=== PATIENT | male | born 1955 | race Hispanic/Latino ===

== ENCOUNTER 2017-06-20 17:42 | Emergency (ER) | payer OTHER ==
[2017-06-20 17:51] VITALS: RESP 16; TEMP 97.4
--- NOTE | 2017-06-20 18:12 | ED PDOC ---
HPI:STROKE - Time Time: 18:08 - Historian Historian: Patient - Chief Complaint Chief Complaint: Numbness - Onset Date: 06/19/17 Time: 18:00 - Timing Timing: Improved - Notes: Notes:: Pt. with numbness to left bicep yesterday that started at 6pm. He went to bed with it and then woke up feeling better but had a pressure on the top of his head. States not a pain. Not the worst in his life. No numbness, tingles, neck pain, weakness, dizziness, chest pain, dyspnea. No fever, cough. No leg pain. Currently no numbness. Went to [facility] who sent pt. to the ER. PCP in [place]. NIHSS Stroke Scale - Date/Time Evaluation Performed Date Performed: 06/20/17 Time Performed: 18:15 When Was NIHSS Performed: Baseline - How Severe is the Stroke Level of Consciousness: 0=Alert LOC to Questions: 0=Both comments correct LOC to commands: 0=Obeys both correctly Best Gaze: 0=Normal Visual: 0=No visual loss Facial: 0=Normal Motor Arm - Left: 0=No drift Motor Arm - Right: 0=No drift Motor Leg - Left: 0=No drift Motor Leg - Right: 0=No drift Limb Ataxia: 0=Absent Sensory: 0=Normal Best Language: 0=No aphasia Dysarthia: 0=Normal articulation Extinction & Inattention (Neglect): 0=Normal, no object Score: 0 rTPA Inclusion/Exclusion - Refusal of Treatment Patient Refused Treatment: No - Inclusion Criteria for Altepase Patient is 18 years or Older: Yes The Clinical Diagnosis of Ischemic Stroke That is Causing a Potentially Disabling Neurological Deficit: No Time of Onset is Well Established to be Less Than 270 Minute Before Treatment Would Begin: No Risk/Benefit Discussed With Patient/Family Member Present: No Past Medical History Reviewed: Nursing Documentation, Vital Signs Vital Signs: Last Vital Signs Temp 97.4 F L 06/20/17 17:47 Pulse 66 06/20/17 17:47 Resp 16 06/20/17 17:47 BP 149/91 H 06/20/17 17:47 Pulse Ox 99 06/20/17 17:47 - Medical History PMH: HTN Other PMH: prostate ca gone now - Family History Family History: States: Unknown Family Hx - Allergies Allergies/Adverse Reactions: Allergies Allergy/AdvReac Type Severity Reaction Status Date / Time No Known Allergies Allergy Verified 06/20/17 17:47 Review of Systems ROS Statement: Except As Marked, All Systems Reviewed And Found Negative Neurological: Positive for: Numbness, Headache Physical Exam - Reviewed Nursing Documentation Reviewed: Yes Vital Signs Reviewed: Yes - Physical Exam Appears: Positive for: Non-toxic, No Acute Distress Head Exam: Positive for: ATRAUMATIC, NORMAL INSPECTION, NORMOCEPHALIC Skin: Positive for: Normal Color, Warm, DRY Eye Exam: Positive for: EOMI, Normal appearance, PERRL ENT: Positive for: Normal ENT Inspection Neck: Positive for: Normal, Painless ROM Cardiovascular/Chest: Positive for: Regular Rate, Rhythm Respiratory: Positive for: CNT, Normal Breath Sounds Gastrointestinal/Abdominal: Positive for: Normal Exam, Soft. Negative for: Tenderness Back: Positive for: Normal Inspection. Negative for: L CVA Tenderness, R CVA Tenderness Extremity: Positive for: Normal ROM. 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 Negative for: Motor/Sensory Deficits, Cerebellar Tests, Gait, Aphasia, Facial Droop - Laboratory Results Result Diagrams: 06/20/17 18:20 06/20/17 18:20 Interpretation Of Abn Labs: no acute - ECG ECG: Positive for: Interpreted By Me, Viewed By Me O2 Sat by Pulse Oximetry: 99 - Radiology X-Ray: Interpreted by Me, Viewed By Me X-Ray Interpretation: No Acute Disease - CT Scan/US head Other Rad Studies (CT/US): Read By Radiologist, Radiology Report Reviewed Other Rad Interpretation: no acute - Progress ED Course And Treament: 1928: Stable. AAOx3. Pain free. No neurological deficits. Family at bedside. Pt. has capacity to make decisions. Pt. refusing to stay for further evaluation or treatment. Aware of possible or decreased functioning from neurological or stroke related issues. Pt. states will see his own doctor. Will go against medical advice. Disposition - Clinical Impression Clinical Impression: Headache, Numbness - Patient ED Disposition Is Patient to be Admitted: No Counseled Patient/Family Regarding: Studies Performed, Diagnosis - Disposition Disposition: Against Medical Advice Disposition Time: 19:30 Condition: STABLE Additional Instructions: You are going against medical advice. You are advised to stay in the hospital overnight for further evaluation and treatment, but are refusing. You could have a tia, stroke, or other neurological issues that we are not able to identify currently but need more evaluation for. Return soon as possible to continue current plan in the hospital. Instructions: Headache, Adult (DC), Paresthesias (DC) Forms: [facility] ([employer])
[2017-06-20] MEDS ORDERED: Sodium Chloride 0.9% 1,000 ML IV SCH (18:15)
[2017-06-20 18:37] LABS: BASO # 0.1 K/uL (0.0-0.2); EOS # 0.2 K/uL (0.0-0.7); EOS % 3.4 % (0.0-4.0); HEMOGLOBIN 14.9 g/dL (12.0-18.0); LYMPH # 1.7 K/uL (1.0-4.3); MEAN CELL VOLUME 92.3 fl (80.0-94.0); MEAN CORPUSCULAR HEMOGLOBIN 31.9 pg (27.0-31.0); MEAN CORPUSCULAR HGB CONC 34.6 g/dL (33.0-37.0); MEAN PLATELET VOLUME 8.4 fl (7.2-11.7); MONO # 0.5 K/uL (0.0-0.8); MONO % 8.5 % (0.0-10.0); NEUT # 3.5 K/uL (1.8-7.0); NEUT % 59.1 % (50.0-75.0); NRBC % 0.2 % (0.0-0.0); RBC 4.67 Mil/uL (4.40-5.90); RED CELL DISTRIBUTION WIDTH 12.4 % (11.5-14.5); WHITE BLOOD COUNT 5.9 K/uL (4.8-10.8)
--- NOTE | 2017-06-20 18:49 | CT ---
PROCEDURE: CT HEAD WITHOUT CONTRAST. HISTORY: headache COMPARISON: None available. TECHNIQUE: Axial computed tomography images were obtained through the head/brain without intravenous contrast. Coronal and sagittal reconstructed images. Radiation dose: Total exam DLP = 853.74 mGy-cm. This CT exam was performed using one or more of the following dose reduction techniques: Automated exposure control, adjustment of the mA and/or kV according to patient size, and/or use of iterative reconstruction technique. FINDINGS: HEMORRHAGE: No intracranial hemorrhage. BRAIN: No mass effect or edema. No atrophy or chronic microvascular ischemic changes. VENTRICLES: Unremarkable. No hydrocephalus. CALVARIUM: Unremarkable. PARANASAL SINUSES: Unremarkable as visualized. No significant inflammatory changes. MASTOID AIR CELLS: Unremarkable as visualized. No inflammatory changes. OTHER FINDINGS: None. IMPRESSION: No acute intracranial abnormalities. No significant findings to account for the clinical presentation.
[2017-06-20 18:56] LABS: ALB/GLOB RATIO 1.3 (1.0-2.1); ALBUMIN 4.1 g/dL (3.5-5.0); ALT/SGPT 39 U/L (21-72); AST/SGOT 27 U/L (17-59); BLOOD UREA NITROGEN 15 mg/dl (9-20); CALCIUM 9.3 mg/dL (8.4-10.2); GFR AFRICAN-AMERICAN > 60; GFR NON-AFRICAN AMERICAN > 60; HDL CHOLESTEROL 41 MG/DL (30-70)
[2017-06-20 18:59] LABS: PARTIAL THROMBOPLASTIN TIME 31.9 Seconds (25.6-37.1); PROTHROMBIN TIME 11.3 Seconds (9.8-13.1)
[2017-06-20 19:07] LABS: LDL CHOLESTEROL 108 mg/dL (0-129)
[2017-06-20 19:53] VITALS: BP 152/94; PULSE 59; O2SAT 96
--- NOTE | 2017-06-21 08:28 | RAD ---
HISTORY: tia COMPARISON: No prior. FINDINGS: LUNGS: No active pulmonary disease. PLEURA: No significant pleural effusion identified, no pneumothorax apparent. CARDIOVASCULAR: Normal. OSSEOUS STRUCTURES: Mild degenerative changes. VISUALIZED UPPER ABDOMEN: Normal. OTHER FINDINGS: None. IMPRESSION: No active disease.
--- NOTE | 2017-06-22 11:37 | CARD ---
APPROVED REPORT EKG Measurement Heart [id number] NM [id number] <Conclusion> Normal sinus rhythm Normal ECG
== END 2017-06-20 19:50 | disposition left against medical advice (07) ==
LOC: H.ER 17:42
DX: R51 Headache (principal); R20.2 Paresthesia of skin; I10 Essential (primary) hypertension; Z85.46 Personal history of malignant neoplasm of prostate